=== PATIENT | female | born 1970 | race Hispanic/Latino ===

== ENCOUNTER 2017-11-03 07:27 | Emergency (ER) | payer OTHER ==
[2017-11-03] MEDS ORDERED: CYCLOBENZAPRINE HCL 10 MG TABLET ONE (08:01)
[2017-11-03] MEDS ORDERED: KETOROLAC TROMETHAMINE 30MG/ML ONE (08:01)
[2017-11-03 08:16] LABS: BILIRUBIN,URINE NEGATIVE (NEGATIVE); COLOR,URINE YELLOW (YELLOW); GLUCOSE, URINE (UA) >=1000 mg/dL (NEGATIVE); KETONES,URINE 5 mg/dL (NEGATIVE); LEUKOCYTE ESTERASE ,URINE NEGATIVE (NEGATIVE); NITRATE,URINE NEGATIVE (NEGATIVE); OCCULT BLOOD,URINE TRACE-INTACT (NEGATIVE); PROTEIN,URINE 30 (NEGATIVE); UROBILINOGEN,URINE 0.2 mg/dL (0.2-1.0)
[2017-11-03 08:23] LABS: APPEARANCE,URINE SLIGHTLY CLOUDY (CLEAR)
[2017-11-03 08:25] LABS: SQUAMOUS EPITHELIAL CELL,UR Moderate /HPF (0-2)
[2017-11-03 08:26] LABS: BACTERIA,URINE Few /HPF (None Seen); RBC,URINE 0-1 /HPF (0-1); WBC,URINE 0-1 /HPF (0-1)
== END 2017-11-03 09:08 | disposition home or self-care (01) ==
LOC: EDH 07:27
DX: M54.5 Low back pain (principal); E11.9 Type 2 diabetes mellitus without complications; I10 Essential (primary) hypertension
CPT/HCPCS: 72100; 81001; 81025; 96372; 99285; J1885

== ENCOUNTER → 2021-08-09 | Outpatient (CLI) | payer MEDICAID ==
[~2021-08-09] MED LIST: LIDOCAINE HCL MPF 1% 5ML VIAL ONE
[2021-08-09 08:51] LABS: PROTHROMBIN TIME 10.9 SEC (9.6-11.6)
[2021-08-09 08:53] LABS: PARTIAL THROMBOPLASTIN TIME 24.8 SEC (26.3-35.5)
== END | disposition home or self-care (01) ==
LOC: RAH 08:02
PROVIDERS: ATTEND Internal Medicine
DX: E04.1 Nontoxic single thyroid nodule (principal); Z79.01 Long term (current) use of anticoagulants
CPT/HCPCS: 10005; 36415; 85610; 85730; 88173; 88305; J3490

== ENCOUNTER → 2022-10-05 | Outpatient (CLI) | payer MEDICAID | END | disposition home or self-care (01) | LOC: RAH 13:43 | PROVIDERS: ATTEND Internal Medicine | DX: E04.2 Nontoxic multinodular goiter (principal) | CPT/HCPCS: 76536 ==